=== PATIENT | female | born 1990 | race Two or more races ===

== ENCOUNTER 2024-07-05 15:04 | Emergency (ER) | payer SELFPAY ==
[~2024-07-05] VITALS: Ht 157.5 cm; Wt 74.8 kg
[2024-07-05 16:01] VITALS: BP 130/86; PULSE 98; RESP 16; TEMP 98.5; O2SAT 100
[2024-07-05] MEDS ORDERED: NAPR-746 PO (16:05)
[2024-07-05] MEDS: ACETAMINOPHEN 325 MG TAB PO ONE (16:07)
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
== END 2024-07-05 16:25 | disposition home or self-care (01) ==
LOC: ER 15:04
DX: S00.83XA Contusion of other part of head, initial encounter (principal); W22.8XXA Striking against or struck by other objects, initial encounter; Y93.89 Activity, other specified; Y92.89 Other specified places as the place of occurrence of the external cause; Y99.8 Other external cause status